=== PATIENT | female | born 1980 | race Caucasian/White ===

== ENCOUNTER 2017-12-10 01:29 | Emergency (ER) | payer BC ==
[2017-12-10] MEDS ORDERED: NORMAL SALINE 1000 ML 1,000 ML IV ONE (02:01)
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
[2017-12-10 02:25] LABS: HEMATOCRIT 22.7 % (36.0-47.0); MEAN CORPUSCULAR HEMOGLOBIN 36.4 pg (27.0-33.4); MEAN CORPUSCULAR HGB CONC 32.8 g/dL (32.0-36.0); PLATELET COUNT 121 10^3/uL (150-450); RED BLOOD COUNT 2.04 10^6/uL (3.72-5.28); RED CELL DISTRIBUTION WIDTH 22.2 % (11.5-14.0); WHITE BLOOD COUNT 19.4 10^3/uL (4.0-10.5)
[2017-12-10 02:30] LABS: VENOUS BLOOD BASE EXCESS -5.6 mmol/L; VENOUS BLOOD HCO3 16.5 mmol/L (20-32); VENOUS BLOOD PCO2 23.3 mmHg (35-63); VENOUS BLOOD PH 7.47 (7.30-7.42)
[2017-12-10 02:33] LABS: HEMOGLOBIN 7.4 g/dL (12.0-15.5)
[2017-12-10 02:34] LABS: INTERNATIONAL RATION (INR) 2.48
[2017-12-10] MEDS ORDERED: NORMAL SALINE 250 ML IV PRN ×2 (02:36→03:22)
[2017-12-10 02:40] LABS: ABSOLUTE LYMPHOCYTES# (MANUAL) 3.7 10^3/uL (0.5-4.7); ABSOLUTE MONOCYTES # (MANUAL) 0.4 10^3/uL (0.1-1.4); ABSOLUTE NEUTROPHILS# (MANUAL) 15.3 10^3/uL (1.7-8.2); BASOPHILS % (MANUAL) 0 % (0-2); EOSINOPHILS % (MANUAL) 0 % (0-6); LYMPHOCYTES % (MANUAL) 19 % (13-45); MONOCYTES % (MANUAL) 2 % (3-13); NUCLEATED RED BLOOD CELLS 2 /100 WBC (0); SEGMENTED NEUTROPHILS % (MAN) 79 % (42-78); TOTAL CELLS COUNTED 100
[2017-12-10] MEDS ORDERED: RINGERS SOLUTION,LACTATED 1,000 ML IV ONE ×2 (02:40→07:59)
[2017-12-10 02:41] LABS: ANISOCYTOSIS 2+; HYPOCHROMASIA 1+; PLATELET COMMENT ADEQUATE; POLYCHROMASIA 2+
[2017-12-10 02:44] LABS: MEAN CORPUSCULAR VOLUME 111 fl (80-97)
[2017-12-10] MEDS ORDERED: ONDANSETRON HCL INJ/PF 4 MG/2 ML SDV IV ONE (02:54)
[2017-12-10 03:09] LABS: GLUCOSE 65 mg/dL (75-110)
[2017-12-10 03:10] LABS: ALANINE AMINOTRANSFERASE 58 U/L (9-52); ALBUMIN 2.4 g/dL (3.5-5.0); ALKALINE PHOSPHATASE 107 U/L (38-126); ASPARTATE AMINO TRANSFERASE 427 U/L (14-36); BILIRUBIN,TOTAL 13.5 mg/dL (0.2-1.3); BLOOD UREA NITROGEN 24 mg/dL (7-20); POTASSIUM 4.3 mmol/L (3.6-5.0)
[2017-12-10 03:12] LABS: APPEARANCE,URINE TURBID; BILIRUBIN,URINE MODERATE (NEGATIVE); COLOR,URINE BROWN; GLUCOSE, URINE NEGATIVE (NEGATIVE); KETONES,URINE NEGATIVE (NEGATIVE); LEUKOCYTE ESTERASE,URINE TRACE (NEGATIVE); NITRITE,URINE NEGATIVE (NEGATIVE); PROTEIN,URINE 100 mg/dL (NEGATIVE); URINE SPECIFIC GRAVITY 1.023
[2017-12-10 03:32] LABS: URINE AMPHETAMINES SCREEN NEGATIVE; URINE BARBITURATES SCREEN NEGATIVE; URINE BENZODIAZEPINES SCREEN NEGATIVE; URINE COCAINE SCREEN NEGATIVE; URINE MARIJUANA (THC) SCREEN NEGATIVE; URINE METHADONE SCREEN NEGATIVE; URINE PHENCYCLIDINE SCREEN NEGATIVE
[2017-12-10 03:45] LABS: ACETAMINOPHEN < 10 ug/mL (10-30); CARBON DIOXIDE 17 mmol/L (22-30); CHLORIDE 75 mmol/L (98-107); SALICYLATE < 1.0 mg/dL (2.0-20.0)
[2017-12-10 04:04] LABS: ANION GAP 23 (5-19)
[2017-12-10 04:05] LABS: SODIUM 115.3 mmol/L (137-145)
[2017-12-10] MEDS ORDERED: DEXTROSE 5%-WATER 250 ML with NOREPINEPHRINE BITARTRATE 4 MG IV PRN ×2 (04:05)
[2017-12-10] MEDS ORDERED: ERTAPENEM SODIUM INJ 1 GM VIAL IV ONE (04:08)
[2017-12-10] MEDS ORDERED: NOREPINEPHRINE BITARTRATE INJ/PF 4 MG/4 ML SDV IV ONE (04:31)
[2017-12-10 07:00] LABS: ALANINE AMINOTRANSFERASE 68 U/L (9-52); ALBUMIN 2.7 g/dL (3.5-5.0); ALKALINE PHOSPHATASE 111 U/L (38-126); ASPARTATE AMINO TRANSFERASE 454 U/L (14-36); BILIRUBIN,DIRECT 13.6 mg/dL (0.0-0.4); BILIRUBIN,TOTAL 15.2 mg/dL (0.2-1.3); BLOOD UREA NITROGEN 26 mg/dL (7-20); CALCIUM 7.3 mg/dL (8.4-10.2); GLUCOSE 89 mg/dL (75-110); POTASSIUM 4.8 mmol/L (3.6-5.0); TOTAL PROTEIN 6.4 g/dL (6.3-8.2)
[2017-12-10 07:08] LABS: CARBON DIOXIDE 16 mmol/L (22-30); CHLORIDE 75 mmol/L (98-107)
[2017-12-10 07:45] LABS: ANION GAP 25 (5-19)
[2017-12-10 07:46] LABS: SODIUM 116.1 mmol/L (137-145)
--- NOTE | 2017-12-10 07:47 | RADIOLOGY REPORT (SQ) ---
CT head without contrast on 12/10/2017 at 5:49 AM CLINICAL INDICATION: Altered mental status TECHNIQUE: Multiple axial images are obtained throughout the head without the administration of contrast. This exam was performed according to our departmental dose-optimization program, which includes automated exposure control, adjustment of the mA and/or kV according to patient size and/or use of iterative reconstruction technique. Total DLP is 1083.99 mGy*cm. COMPARISON: None FINDINGS: There is no hydrocephalus. There is no CT evidence of acute infarct. There is no hemorrhage. There are no abnormal extra-axial fluid collections. There is no mass, mass effect or midline shift. No bony abnormality is noted. Mild mucosal thickening is noted in the maxillary sinuses. IMPRESSION: No acute intracranial abnormality.
--- NOTE | 2017-12-10 07:47 | RADIOLOGY REPORT (SQ) ---
CT abdomen and pelvis without contrast on 12/10/2017 at 5:37 AM CLINICAL INDICATION: Right upper quadrant and right lower quadrant abdominal pain TECHNIQUE: Multiple axial images are obtained throughout the abdomen and pelvis without the administration of contrast. This exam was performed according to our departmental dose-optimization program, which includes automated exposure control, adjustment of the mA and/or kV according to patient size and/or use of iterative reconstruction technique. Total DLP is 848.1 mGy*cm. COMPARISON: None FINDINGS: Abdomen: There are very small bilateral pleural effusions with mild bibasilar atelectasis. There is a moderate to large size hiatal hernia. Anasarca is noted in the subcutaneous tissues. There is fatty infiltration of the liver. Hepatomegaly is noted. Gallstones are noted in the gallbladder. There are no renal or ureteral stones and no hydronephrosis. The unenhanced solid abdominal organs are otherwise unremarkable. There is no abdominal adenopathy. There is no free air within the abdomen. Small amount of ascites is noted in the abdomen. The abdominal portion of the GI tract is unremarkable. Pelvis: Small to moderate amount of ascites is noted in the pelvis. Pelvic organs appear unremarkable by CT. There is no pelvic adenopathy. Pelvic portion of the GI tract is unremarkable. Dodge catheter is noted in the bladder. No acute bony abnormality is noted. IMPRESSION: 1. Evidence of volume overload and/or third spacing with small pleural effusions, ascites and anasarca. 2. Moderate to large sized hiatal hernia. 3. Cholelithiasis. 4. Hepatomegaly with fatty infiltration of the liver.
--- NOTE | 2017-12-10 07:47 | RADIOLOGY REPORT (SQ) ---
Clinical History : AMS, tachypnea , Exam : Portable AP view of the chest 12/10/2017 1:41 AM CDT Comparisons : none Findings : The lungs are low in volume which accentuates the pulmonary vasculature. There is otherwise no focal consolidation or pleural effusion.. The heart is normal in size. The mediastinal contours are normal in appearance. The thoracic spine is age appropriate. The shoulders are unremarkable. Limited evaluation of the upper abdomen demonstrates no gross abnormalities. Impression: Low lung volumes, otherwise no acute cardiopulmonary disease
--- NOTE | 2017-12-10 07:47 | RADIOLOGY REPORT (SQ) ---
EXAM DESCRIPTION: Right upper quadrant ultrasound 12/10/2017 3:04 AM CDT CLINICAL HISTORY: 37 years, Female, RUQ COMPARISON: None. TECHNIQUE: Utilizing a curved array transducer, real-time ultrasound evaluation of the right upper quadrant was performed. Color Doppler imaging was used to assess vascular flow. FINDINGS: The liver is markedly enlarged measuring 23.6 cm in craniocaudal dimension with diffuse nodular contour. There is increased echogenicity of the hepatic parenchyma. There are no infiltrating or discrete hepatic masses identified. There is normal hepatopetal flow in the main portal vein. There is a small amount of perihepatic ascites. The gallbladder is well visualized and distended. The gallbladder wall measures up to 8.6 mm in thickness. There are numerous echogenic shadowing gallstones diffusely throughout the gallbladder lumen with a wall/echo/shadow morphology. There is no pericholecystic fluid. The patient had a negative ultrasonographic Colmenares's sign. The common bile duct measures 2.2 mm in diameter. Limited images of the pancreas demonstrate no gross abnormalities. The aorta is incompletely evaluated an otherwise grossly normal in course and caliber. The right kidney is normal in size measuring 10.8 x 5.2 x 6.2 cm. The right renal cortex measures 1.3 cm in thickness. There are no shadowing right renal calculi or evidence of hydronephrosis. There are no infiltrating or discrete right renal masses. There is normal echogenicity of the right kidney relative to the adjacent liver. IMPRESSION: 1. Cholelithiasis with gallbladder wall thickening, likely related to volume overload. 2. Enlarged nodular fatty liver with perihepatic ascites.
[2017-12-10 09:58] VITALS: BP 110/51
[2017-12-10 13:07] LABS: PATH REVIEW PATHOLOGIST REVIEWED
--- NOTE | 2017-12-11 15:20 | EKG REPORT ---
SEVERITY:- BORDERLINE ECG - SINUS TACHYCARDIA BORDERLINE T ABNORMALITIES, INFERIOR LEADS BORDERLINE PROLONGED QT INTERVAL : Confirmed by: Lara Davis MD 11-Dec-2017 15:19:38
== END 2017-12-10 10:15 | disposition short-term general hospital (02) ==
LOC: ER 01:29
DX: K72.00 Acute and subacute hepatic failure without coma (principal); E87.1 Hypo-osmolality and hyponatremia; D68.9 Coagulation defect, unspecified; D72.829 Elevated white blood cell count, unspecified; N17.9 Acute kidney failure, unspecified; E83.51 Hypocalcemia; T68.XXXA Hypothermia, initial encounter; T14.8XXA Other injury of unspecified body region, initial encounter; X58.XXXA Exposure to other specified factors, initial encounter; I95.9 Hypotension, unspecified; R41.0 Disorientation, unspecified; R53.83 Other fatigue; R06.09 Other forms of dyspnea; R50.9 Fever, unspecified; R00.0 Tachycardia, unspecified; R10.11 Right upper quadrant pain; K92.0 Hematemesis; R53.1 Weakness; F17.200 Nicotine dependence, unspecified, uncomplicated
CPT/HCPCS: 93005; 99291; 96361; 51702; 96375; 96365; 96366; 96367; 86900; 86901; 36415; 87040; 87086; 36430; 86850; 82962; 80307 ×4; 82140; 83690; 84703; 85025; 85610; 85730; 87077; 87088; 80053; 81001; 87186; 86920; 82803; 83605; 80074; 71045; 76705; 93976; 70450; 74176; 93010; 36556; P9017; P9016; J1335; J3490; J2405